=== PATIENT | male | born 1985 | race Caucasian/White ===

== ENCOUNTER → 2016-08-09 | Outpatient (REF) | LOC: EMS 18:30 | DX: Z02.89 Encounter for other administrative examinations (principal); Z02.83 Encounter for blood-alcohol and blood-drug test ==

== ENCOUNTER 2016-10-09 18:11 | Emergency (ER) | payer MEDICAID, OTHER ==
[~2016-10-09] VITALS: Ht 195.6 cm; Wt 81.8 kg
[~2016-10-09 18:11] MED LIST: ALPR.5T PO; AMOX500C5 PO; CEPH-331 PO; CEPH500T PO; HYDR-3702 PO; HYDR-3881 PO; HYDR-707 PO; NEOM10DR9 EACH EAR; PRED-501 PO; PRM25T PO; SILO8CAP PO; SULF-221 PO; TRAM-25 PO; TRM50T PO; ZLP10T PO
--- OUTSIDE RECORDS SUMMARY | 2016-10-09 18:15 | XMS REPORT | Continuity of Care Document ---
Author Author [facility] Address Unknown Phone Unavailable Allergies Active Description Code Type Severity Reaction Onset Reported/Identified Relationship to Patient Clinical Status Yes No Known Drug Allergies [id number] Drug Allergy Unknown N/ A 12/12/2011 Yes No Allergy Information Available 143 Drug Allergy N/A N/A 09/24/2015 Confirmed or Verified Medications Problems Date Dx Coded Attending Type Code Diagnosis Diagnosed By 12/12/2011 Ot 592.1 12/14/2011 Ot 276.51 12/14/2011 Ot 305.20 12/14/2011 Ot 305.70 12/14/2011 Ot 592.1 12/14/2011 Ot 780.09 11/17/2014 JEAN PIERRE FLORES DO Ot 883.0 11/17/2014 JEAN PIERRE FLORES DO Ot E849.0 11/17/2014 JEAN PIERRE FLORES DO Ot E918 06/22/2015 DAYAMI BERG MD Ot H60.91 06/22/2015 DAYAMI BERG MD Ot H66.91 06/22/2015 DAYAMI BERG MD Ot H92.01 09/24/2015 Lin Manzanares MD 525.9 Tooth pain 09/24/2015 Lin Manzanares MD 522.5 Dental abscess 09/24/2015 LIN MANZANARES MD 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 Visit Date/Time Discharge Status Pt. Type Provider Facility Loc./Unit Complaint [id number] 11/10/2015 09:33:00 2015 10:25:00 DIS Outpatient OTIS FLAHERTY, [facility] ED [id number] 06/22/2015 08:15:00 2015 08:40:00 DIS Emergency OTIS FLAHERTY, [facility] ED [id number] 11/17/2014 15:46:00 2014 17:33:00 DIS Emergency MARK DO [facility] ED [id number] 08/09/2016 18:30:00 ACT Outpatient Rashad Gordon [facility] EMS [place] DRAW [id number] 12/14/2011 17:07:00 Document Registration [id number] 12/12/2011 17:53:00 Document Registration
--- OUTSIDE RECORDS SUMMARY | 2016-10-09 18:16 | XMS REPORT | Continuity of Care Document ---
Author Author [facility] Address Unknown Phone Unavailable Allergies Active Description Code Type Severity Reaction Onset Reported/Identified Relationship to Patient Clinical Status Yes No Known Drug Allergies [id number] Drug Allergy Unknown N/ A 12/12/2011 Yes [...] Procedures Code [place] [address] EMERGENCY DEPT VISIT LIN MANZANARES MD 09/23/2015 96847 Emergency department visit moderate severity 09/24/2015 Results Encounters ACCT No. Visit Date/Time Discharge Status Pt. Type Provider Facility Loc./Unit Complaint [id number] 11/10/2015 09:33:00 2015 10:25:00 DIS Outpatient OTIS FLAHERTY, [facility] ED [id number] 06/22/2015 08:15:00 2015 08:40:00 DIS Emergency OTIS FLAHERTY, [facility] ED [id number] 11/17/2014 15:46:00 2014 17:33:00 DIS Emergency MARK DO [facility] ED [id number] 08/09/2016 18:30:00 ACT Outpatient Rashad Gordon [facility] EMS [place]RAW [id number] 12/14/2011 17:07:00 Document Registration [id number] 12/12/2011 17:53:00 Document Registration
[2016-10-09] MEDS ORDERED: DIAZEPAM 10 MG/2 ML (VALIUM) SYRINGE IM ONE (18:50)
[2016-10-09] MEDS ORDERED: ALPR0.25 PO (20:16)
[2016-10-09 20:25] VITALS: BP 137/98
== END 2016-10-09 20:25 | disposition home or self-care (01) ==
LOC: ED 18:13
DX: F41.9 Anxiety disorder, unspecified (principal)
CPT/HCPCS: 96372; 99283; J3360; 99282